=== PATIENT | female | born 1940 | race Caucasian/White ===

== ENCOUNTER 2019-11-22 11:40 | Emergency (ER) | payer BC, MEDICARE ==
[~2019-11-22] VITALS: Ht 157.5 cm; Wt 61.4 kg
[2019-11-22 12:37] LABS: BASOPHILS # (AUTO) 0.1 X10'3 (0-0.2); BASOPHILS % (AUTO) 0.8 % (0-1); EOSINOPHILS # (AUTO) 0.1 X10'3 (0-0.9); EOSINOPHILS % (AUTO) 1.7 % (0-6); HEMATOCRIT 40.7 % (35.0-45.0); HEMOGLOBIN 13.6 g/dl (12.0-16.0); LYMPHOCYTES # (AUTO) 1.3 X10'3 (1.1-4.8); LYMPHOCYTES % (AUTO) 19.5 % (21-51); MEAN CORPUSCULAR HEMOGLOBIN 32.7 PG (27.0-31.0); MEAN CORPUSCULAR HGB CONC 33.4 g/dL (33.0-36.5); MEAN PLATELET VOLUME 9.7 FL (7.4-10.4); MONOCYTES # (AUTO) 0.6 X10'3 (0-0.9); MONOCYTES % (AUTO) 8.9 % (2-12); NEUTROPHILS # (AUTO) 4.7 X10'3 (1.8-7.7); NEUTROPHILS % (AUTO) 69.1 % (42-75); PLATELET COUNT 195 X10'3 (140-440); RED BLOOD COUNT 4.15 X10'6 (4.20-5.60); RED CELL DISTRIBUTION WIDTH 13.4 % (11.5-14.5); WHITE BLOOD COUNT 6.8 X10'3 (4.5-11.0)
[2019-11-22 12:50] LABS: ALANINE AMINOTRANSFERASE 23 U/L (12-78); ALBUMIN 3.5 G/DL (3.4-5.0); ALBUMIN/GLOBULIN RATIO 1.1 (1.1-1.5); ALKALINE PHOSPHATASE 63 IU/L (46-116); ANION GAP 6 (8-16); ASPARTATE AMINO TRANSFERASE 17 U/L (10-37); BILIRUBIN,TOTAL 0.4 MG/DL (0.1-1.0); BLOOD UREA NITROGEN 17 MG/DL (7-18); BUN/CREATININE RATIO 18.5 (6.6-38.0); CALCIUM 8.7 MG/DL (8.5-10.1); CHLORIDE 110 MMOL/L (99-107); CREATININE 0.92 MG/DL (0.40-0.90); GLUCOSE 94 MG/DL (70-104); POTASSIUM 3.7 MMOL/L (3.5-5.1); SODIUM 144 MMOL/L (135-145); TOTAL CARBON DIOXIDE 28.2 MMOL/L (24-32); TOTAL PROTEIN 6.7 G/DL (6.4-8.2); eGFR 59 ML/MIN
[2019-11-22 13:00] LABS: CLARITY,URINE CLEAR (Clear); COLOR,URINE YELLOW (Yellow); GLUCOSE, URINE NEGATIVE (Neg); KETONES,URINE NEGATIVE (Neg); LEUKOCYTE ESTERASE ,URINE NEGATIVE (Neg); NITRITES, URINE NEGATIVE (Neg); OCCULT BLOOD,URINE NEGATIVE (Neg); PROTEIN,URINE NEGATIVE (Neg); UROBILINOGEN,URINE 0.2 E.U/dL (0.2-1.0)
[2019-11-22 13:04] LABS: UA COLLECTION TYPE CLN CATCH MIDSTREAM
[2019-11-22 14:26] VITALS: BP 138/77
== END 2019-11-22 14:28 | disposition home or self-care (01) ==
LOC: ER 11:41
DX: R42 Dizziness and giddiness (principal); R19.7 Diarrhea, unspecified; Z20.828 Contact with and (suspected) exposure to other viral communicable diseases; Z79.899 Other long term (current) drug therapy
CPT/HCPCS: 36415; 70450; 71045; 80053; 81003; 85025; 93005; 99285

== ENCOUNTER 2019-12-07 09:52 | Emergency (ER) | payer MEDICARE, BC ==
[~2019-12-07] VITALS: Ht 157.5 cm; Wt 63.6 kg
[2019-12-07 10:00] VITALS: BP 132/60
[2019-12-07] MEDS ORDERED: famotidine/PF 10 mg/ml inj IV ONE (10:10)
[2019-12-07] MEDS ORDERED: normal saline 1000ML IV soln IVB ONE (10:10)
[2019-12-07] MEDS ORDERED: ondansetron/PF 4mg/2ml inj IV ONE (10:20)
[2019-12-07] MEDS ORDERED: mag hydrox/Alum hydrox/simeth 30ml oral suspension PO ONE (10:20)
[2019-12-07 10:28] LABS: BASOPHILS % (AUTO) 0.8 % (0-1); EOSINOPHILS % (AUTO) 0.5 % (0-6); HEMATOCRIT 41.2 % (35.0-45.0); HEMOGLOBIN 13.7 g/dl (12.0-16.0); LYMPHOCYTES # (AUTO) 1.3 X10'3 (1.1-4.8); LYMPHOCYTES % (AUTO) 20.6 % (21-51); MEAN CORPUSCULAR HEMOGLOBIN 32.9 PG (27.0-31.0); MEAN CORPUSCULAR HGB CONC 33.3 g/dL (33.0-36.5); MEAN CORPUSCULAR VOLUME 98.6 FL (78-98); MEAN PLATELET VOLUME 9.6 FL (7.4-10.4); MONOCYTES # (AUTO) 0.6 X10'3 (0-0.9); MONOCYTES % (AUTO) 9.9 % (2-12); NEUTROPHILS # (AUTO) 4.3 X10'3 (1.8-7.7); NEUTROPHILS % (AUTO) 68.2 % (42-75); PLATELET COUNT 201 X10'3 (140-440); RED BLOOD COUNT 4.18 X10'6 (4.20-5.60); RED CELL DISTRIBUTION WIDTH 13.5 % (11.5-14.5); WHITE BLOOD COUNT 6.3 X10'3 (4.5-11.0)
[2019-12-07 10:44] LABS: ALANINE AMINOTRANSFERASE 29 U/L (12-78); ALBUMIN 3.6 G/DL (3.4-5.0); ALKALINE PHOSPHATASE 64 IU/L (46-116); ANION GAP 9 (8-16); ASPARTATE AMINO TRANSFERASE 20 U/L (10-37); BILIRUBIN,TOTAL 0.5 MG/DL (0.1-1.0); BLOOD UREA NITROGEN 21 MG/DL (7-18); BUN/CREATININE RATIO 23.1 (6.6-38.0); CALCIUM 8.8 MG/DL (8.5-10.1); CHLORIDE 107 MMOL/L (99-107); CREATININE 0.91 MG/DL (0.40-0.90); GLUCOSE 98 MG/DL (70-104); POTASSIUM 3.3 MMOL/L (3.5-5.1); SODIUM 142 MMOL/L (135-145); TOTAL CARBON DIOXIDE 25.9 MMOL/L (24-32); TOTAL PROTEIN 7.1 G/DL (6.4-8.2); eGFR 60 ML/MIN
[2019-12-07 10:47] LABS: LIPASE 192 U/L (73-393); TROPONIN I < 0.04 NG/ML (0.0-0.05)
[2019-12-07] MEDS ORDERED: pantoprazole 40 MG vial IV ONE (11:30)
[2019-12-07] MEDS ORDERED: ONDA8TAB6 PO (11:35)
[2019-12-07] MEDS ORDERED: FAMO-128 PO (11:35)
[2019-12-07] MEDS ORDERED: PANT-47 PO (11:35)
== END 2019-12-07 12:18 | disposition home or self-care (01) ==
LOC: ER 09:53
DX: K29.00 Acute gastritis without bleeding (principal); R42 Dizziness and giddiness; R10.9 Unspecified abdominal pain; R50.9 Fever, unspecified; I10 Essential (primary) hypertension; E03.9 Hypothyroidism, unspecified; Z88.1 Allergy status to other antibiotic agents; Z79.899 Other long term (current) drug therapy
CPT/HCPCS: 36415; 71045; 74176; 80053; 83690; 84484; 85025; 93005; 96361; 96374; 96375; 99285; C9113; J2405; J3490; J7030

== ENCOUNTER 2020-08-28 09:23 | Emergency (ER) | payer BC, MEDICARE ==
[~2020-08-28] VITALS: Ht 160 cm; Wt 64.8 kg
[~2020-08-28 09:23] MED LIST: FAMO-128 PO; ONDA8TAB6 PO; PANT-47 PO
[2020-08-28 10:11] LABS: BASOPHILS % (AUTO) 0.7 % (0-1); EOSINOPHILS # (AUTO) 0.1 X10'3 (0-0.9); EOSINOPHILS % (AUTO) 1.2 % (0-6); HEMATOCRIT 43.8 % (35.0-45.0); HEMOGLOBIN 14.2 g/dl (12.0-16.0); LYMPHOCYTES % (AUTO) 16.4 % (21-51); MEAN CORPUSCULAR HEMOGLOBIN 31.9 PG (27.0-31.0); MEAN CORPUSCULAR HGB CONC 32.5 g/dL (33.0-36.5); MEAN CORPUSCULAR VOLUME 98.2 FL (78-98); MEAN PLATELET VOLUME 9.9 FL (7.4-10.4); MONOCYTES # (AUTO) 0.5 X10'3 (0-0.9); MONOCYTES % (AUTO) 8.5 % (2-12); NEUTROPHILS # (AUTO) 4.3 X10'3 (1.8-7.7); NEUTROPHILS % (AUTO) 73.2 % (42-75); PLATELET COUNT 213 X10'3 (140-440); RED BLOOD COUNT 4.46 X10'6 (4.20-5.60); RED CELL DISTRIBUTION WIDTH 13.9 % (11.5-14.5); WHITE BLOOD COUNT 5.9 X10'3 (4.5-11.0)
[2020-08-28 10:24] LABS: ALANINE AMINOTRANSFERASE 24 U/L (12-78); ALBUMIN 3.5 G/DL (3.4-5.0); ALKALINE PHOSPHATASE 76 IU/L (46-116); ANION GAP 8 (8-16); ASPARTATE AMINO TRANSFERASE 22 U/L (10-37); BILIRUBIN,TOTAL 0.4 MG/DL (0.1-1.0); BLOOD UREA NITROGEN 17 MG/DL (7-18); BUN/CREATININE RATIO 19.5 (6.6-38.0); CALCIUM 8.4 MG/DL (8.5-10.1); CHLORIDE 108 MMOL/L (99-107); CREATININE 0.87 MG/DL (0.40-0.90); GLUCOSE 101 MG/DL (70-104); LIPASE 167 U/L (73-393); POTASSIUM 3.5 MMOL/L (3.5-5.1); SODIUM 144 MMOL/L (135-145); TOTAL CARBON DIOXIDE 27.8 MMOL/L (24-32); TOTAL PROTEIN 6.9 G/DL (6.4-8.2); eGFR 63 ML/MIN
[2020-08-28 10:39] LABS: CLARITY,URINE SLIGHTLY CLOUDY (Clear); COLOR,URINE STRAW (Yellow); GLUCOSE, URINE NEGATIVE (Neg); KETONES,URINE NEGATIVE (Neg); LEUKOCYTE ESTERASE ,URINE TRACE (Neg); NITRITES, URINE NEGATIVE (Neg); OCCULT BLOOD,URINE NEGATIVE (Neg); PROTEIN,URINE NEGATIVE (Neg); UROBILINOGEN,URINE 0.2 E.U/dL (0.2-1.0)
[2020-08-28 10:44] LABS: UA COLLECTION TYPE CLN CATCH MIDSTREAM
[2020-08-28 10:45] LABS: MUCUS STRANDS MANY /LPF (Neg); SQUAMOUS EPITHELIAL CELL,UR MODERATE /LPF (FEW); TRANSITIONAL EPI CELLS,URINE FEW /HPF
[2020-08-28 10:46] LABS: HYALINE CASTS 0-3 /LPF (NEGATIVE)
[2020-08-28 10:47] LABS: WBC,URINE 20-30 /HPF (0-4)
[2020-08-28 10:48] LABS: BACTERIA,URINE FEW /HPF (Neg); RBC,URINE 0-2 /HPF (0-2); WBC CLUMPS,URINE FEW /HPF (NEGATIVE)
[2020-08-28 12:12] VITALS: BP 107/69
== END 2020-08-28 12:14 | disposition home or self-care (01) ==
LOC: ER 09:23
DX: R10.32 Left lower quadrant pain (principal); I10 Essential (primary) hypertension; E05.90 Thyrotoxicosis, unspecified without thyrotoxic crisis or storm; Z88.1 Allergy status to other antibiotic agents; Z79.899 Other long term (current) drug therapy
CPT/HCPCS: 36415; 80053; 81001; 83690; 85025; 87077; 87088; 87186; 93005; 99284

== ENCOUNTER 2021-02-16 08:45 | Emergency (ER) | payer BC ==
[~2021-02-16] VITALS: Ht 157.5 cm; Wt 68.2 kg
[2021-02-16 08:53] VITALS: BP 147/78
[2021-02-16] MEDS ORDERED: LIDOcaine 5% patch TP STA (09:53)
== END 2021-02-16 10:19 | disposition home or self-care (01) ==
LOC: ER 08:45
DX: M54.50 Low back pain, unspecified (principal); G89.29 Other chronic pain; K59.00 Constipation, unspecified; N39.490 Overflow incontinence; R10.84 Generalized abdominal pain; R19.7 Diarrhea, unspecified; I10 Essential (primary) hypertension; E05.90 Thyrotoxicosis, unspecified without thyrotoxic crisis or storm; Z88.1 Allergy status to other antibiotic agents; Z79.899 Other long term (current) drug therapy
CPT/HCPCS: 99282

== ENCOUNTER 2021-10-20 10:57 | Emergency (ER) | payer MEDICARE, BC ==
[~2021-10-20] VITALS: Ht 157.5 cm; Wt 63.0 kg
[2021-10-20 11:09] VITALS: BP 118/67
[2021-10-20 11:53] LABS: BASOPHILS % (AUTO) 0.5 % (0-1); EOSINOPHILS % (AUTO) 0.1 % (0-6); HEMOGLOBIN 14.8 g/dl (12.0-16.0); LYMPHOCYTES % (AUTO) 11.7 % (21-51); MEAN CORPUSCULAR HEMOGLOBIN 32.5 PG (27.0-31.0); MEAN CORPUSCULAR HGB CONC 33.6 g/dL (33.0-36.5); MEAN CORPUSCULAR VOLUME 96.5 FL (78-98); MEAN PLATELET VOLUME 8.9 FL (7.4-10.4); MONOCYTES # (AUTO) 0.8 X10'3 (0-0.9); MONOCYTES % (AUTO) 9.5 % (2-12); NEUTROPHILS # (AUTO) 6.8 X10'3 (1.8-7.7); NEUTROPHILS % (AUTO) 78.2 % (42-75); PLATELET COUNT 235 X10'3 (140-440); RED BLOOD COUNT 4.55 X10'6 (4.20-5.60); RED CELL DISTRIBUTION WIDTH 13.5 % (11.5-14.5); WHITE BLOOD COUNT 8.7 X10'3 (4.5-11.0)
[2021-10-20 12:05] LABS: CLARITY,URINE CLEAR (Clear); COLOR,URINE YELLOW (Yellow); GLUCOSE, URINE NEGATIVE (Neg); KETONES,URINE NEGATIVE (Neg); LEUKOCYTE ESTERASE ,URINE NEGATIVE (Neg); NITRITES, URINE NEGATIVE (Neg); OCCULT BLOOD,URINE NEGATIVE (Neg); PH,URINE 5.5 (4.8-8.0); PROTEIN,URINE 30 mg/dl (Neg); UA COLLECTION TYPE CLN CATCH MIDSTREAM; UROBILINOGEN,URINE 0.2 E.U/dL (0.2-1.0)
[2021-10-20 12:10] LABS: ALANINE AMINOTRANSFERASE 36 U/L (12-78); ALBUMIN 3.6 G/DL (3.4-5.0); ALKALINE PHOSPHATASE 80 IU/L (46-116); ANION GAP 7 (8-16); ASPARTATE AMINO TRANSFERASE 22 U/L (10-37); BILIRUBIN,TOTAL 0.4 MG/DL (0.1-1.0); BLOOD UREA NITROGEN 21 MG/DL (7-18); BUN/CREATININE RATIO 19.4 (6.6-38.0); CHLORIDE 107 MMOL/L (99-107); CREATININE 1.08 MG/DL (0.40-0.90); GLUCOSE 96 MG/DL (70-104); POTASSIUM 3.9 MMOL/L (3.5-5.1); SODIUM 141 MMOL/L (135-145); TOTAL CARBON DIOXIDE 26.8 MMOL/L (24-32); TOTAL PROTEIN 7.2 G/DL (6.4-8.2); eGFR 49 ML/MIN
[2021-10-20 12:22] LABS: BACTERIA,URINE NONE SEEN /HPF (Neg); RBC,URINE NONE SEEN /HPF (0-2); SQUAMOUS EPITHELIAL CELL,UR MODERATE /LPF (FEW); WBC,URINE 0-4 /HPF (0-4)
== END 2021-10-20 12:54 | disposition home or self-care (01) ==
LOC: ER 10:58
DX: R41.0 Disorientation, unspecified (principal); F03.90 Unspecified dementia, unspecified severity, without behavioral disturbance, psychotic disturbance, mood disturbance, and anxiety; I10 Essential (primary) hypertension; E05.90 Thyrotoxicosis, unspecified without thyrotoxic crisis or storm; Z87.19 Personal history of other diseases of the digestive system; Z88.1 Allergy status to other antibiotic agents; Z79.899 Other long term (current) drug therapy
CPT/HCPCS: 36415; 80053; 81001; 85025; 93005; 99284

== ENCOUNTER 2022-09-10 10:51 | Emergency (ER) | payer OTHER, BC ==
[~2022-09-10] VITALS: Ht 157.5 cm; Wt 70.0 kg
[2022-09-10 11:03] VITALS: BP 176/76
[2022-09-10 11:32] LABS: BASOPHILS % (AUTO) 0.6 % (0-1); EOSINOPHILS % (AUTO) 0.4 % (0-6); HEMATOCRIT 44.4 % (35.0-45.0); HEMOGLOBIN 14.6 g/dl (12.0-16.0); LYMPHOCYTES # (AUTO) 0.9 X10'3 (1.1-4.8); LYMPHOCYTES % (AUTO) 12.3 % (21-51); MEAN CORPUSCULAR HEMOGLOBIN 32.3 PG (27.0-31.0); MEAN CORPUSCULAR VOLUME 97.9 FL (78-98); MEAN PLATELET VOLUME 9.7 FL (7.4-10.4); MONOCYTES # (AUTO) 0.7 X10'3 (0-0.9); MONOCYTES % (AUTO) 10.2 % (2-12); NEUTROPHILS # (AUTO) 5.5 X10'3 (1.8-7.7); NEUTROPHILS % (AUTO) 76.5 % (42-75); PLATELET COUNT 235 X10'3 (140-440); RED BLOOD COUNT 4.53 X10'6 (4.20-5.60); WHITE BLOOD COUNT 7.2 X10'3 (4.5-11.0)
[2022-09-10 11:50] LABS: ALANINE AMINOTRANSFERASE 26 U/L (12-78); ALBUMIN 3.4 G/DL (3.4-5.0); ALKALINE PHOSPHATASE 83 IU/L (46-116); ANION GAP 10 (8-16); ASPARTATE AMINO TRANSFERASE 22 U/L (10-37); BILIRUBIN,TOTAL 0.5 MG/DL (0.1-1.0); BLOOD UREA NITROGEN 15 MG/DL (7-18); BUN/CREATININE RATIO 14.6 (10.0-20.0); CHLORIDE 108 MMOL/L (99-107); CREATININE 1.03 MG/DL (0.40-0.90); GLUCOSE 149 MG/DL (70-104); POTASSIUM 3.2 MMOL/L (3.5-5.1); SODIUM 146 MMOL/L (135-145); TOTAL CARBON DIOXIDE 27.6 MMOL/L (24-32); TOTAL PROTEIN 6.8 G/DL (6.4-8.2); eGFR 52 ML/MIN
[2022-09-10 13:14] LABS: CLARITY,URINE SLIGHTLY CLOUDY (Clear); COLOR,URINE YELLOW (Yellow); GLUCOSE, URINE NEGATIVE (Neg); KETONES,URINE NEGATIVE (Neg); LEUKOCYTE ESTERASE ,URINE SMALL (Neg); NITRITES, URINE NEGATIVE (Neg); OCCULT BLOOD,URINE NEGATIVE (Neg); PROTEIN,URINE 30 mg/dl (Neg)
[2022-09-10 13:34] LABS: UA COLLECTION TYPE CLN CATCH MIDSTREAM
[2022-09-10 13:39] LABS: WBC,URINE 50-100 /HPF (0-4)
[2022-09-10 13:40] LABS: BACTERIA,URINE 2+ /HPF (Neg); CAL OXALATE CRYSTALS 3+ /HPF (NEGATIVE); MUCUS STRANDS NONE SEEN /LPF (Neg); RBC,URINE 0-2 /HPF (0-2); SQUAMOUS EPITHELIAL CELL,UR MODERATE /LPF (FEW)
[2022-09-10 13:41] LABS: WBC CLUMPS,URINE FEW /HPF (NEGATIVE)
[2022-09-10] MEDS ORDERED: CEPH250T PO (13:55)
== END 2022-09-10 14:05 | disposition home or self-care (01) ==
LOC: ER 10:51
DX: N39.0 Urinary tract infection, site not specified (principal); F03.90 Unspecified dementia, unspecified severity, without behavioral disturbance, psychotic disturbance, mood disturbance, and anxiety; G30.1 Alzheimer's disease with late onset; I10 Essential (primary) hypertension; E03.9 Hypothyroidism, unspecified; F41.9 Anxiety disorder, unspecified; Z88.1 Allergy status to other antibiotic agents; Z79.899 Other long term (current) drug therapy; Z79.1 Long term (current) use of non-steroidal anti-inflammatories (NSAID); Z79.2 Long term (current) use of antibiotics
CPT/HCPCS: 36415; 70450; 80053; 81001; 85025; 87077; 87088; 87186; 99284